=== PATIENT | female | born 1970 | race Two or more races ===

== ENCOUNTER → 2021-10-04 | Emergency (ER) | payer SELFPAY ==
[~2021-10-04] VITALS: Ht 170.2 cm; Wt 88.0 kg
[2021-10-04 11:34] VITALS: BP 163/100
[2021-10-04 12:37] LABS: EOSINOPHILS % 6.2 % (0.0-5.0); HEMATOCRIT. 41.1 % (36.0-48.0); HEMOGLOBIN. 13.7 g/dL (12.0-16.0); MEAN CORPUSCULAR HEMOGLOBIN 32.5 pg (28.0-32.0); MEAN CORPUSCULAR VOLUME 97.6 fL (81.0-99.0); MEAN PLATELET VOLUME 8.1 fl (7.4-10.4); MONOCYTES % 10.1 % (2.0-8.0); NEUTROPHILS % 56.7 % (40.0-76.0); PLATELET 153 x1000/uL (130-400); RED BLOOD CELL COUNT 4.21 mill/uL (4.2-5.4); RED CELL DISTRIBUTION WIDTH 15.4 % (11.6-14.6)
[2021-10-04 12:43] LABS: CHLORIDE 103 mEq/L (98-107)
== END ==
LOC: ER 10:58
DX: J02.9 Acute pharyngitis, unspecified (principal); Z53.21 Procedure and treatment not carried out due to patient leaving prior to being seen by health care provider
CPT/HCPCS: 36415; 80053; 84484; 85025